=== PATIENT | female | born 1935 | race Caucasian/White ===

== ENCOUNTER 2018-04-28 09:30 | Inpatient (IN) | payer OTHER ==
[~2018-04-28] VITALS: Ht 160 cm; Wt 55.9 kg
[2018-04-28 09:30] VITALS: BP 181/74
[~2018-04-28 09:30] MED LIST: ACID CONTROL20 MG PO; ADULT LOW DOSE81 MG PO; AMITRIPTYLINE H50 M2 PO; AMOXIL 875 MG875 M1 PO; APAP500 PO; CARVEDILOL12.5 MG PO; CIPRO250 MG PO; CIPROFLOXACIN500 M1 PO; CLONIDINE HCL0.2 M2 PO; FAMOTIDINE20 MG PO; FUROSEMIDE 40 M40 M1 PO; LEVEMIR SQ; MACROBID 100 M100 M1 PO; NORCO 5-325 TA1 EACH PO; POTASSIUM20 OR; POTASSIUM20 PO; PRINIVIL20 MG PO; REMERON 30 MG T30 M1 PO; SLOW-MAG64 MG PO; ZOCOR 20 MG TAB20 M1 PO
[2018-04-28] MEDS ORDERED: AMLODIPINE BESY10 MG PO (09:38)
[2018-04-28] MEDS ORDERED: ASPIR 8181 MG PO (09:38)
[2018-04-28] MEDS ORDERED: COREG25 MG PO (09:38)
[2018-04-28] MEDS ORDERED: GLUCOTROL5 MG PO (09:39)
[2018-04-28] MEDS ORDERED: MULTIVITAMINS1 EAC7 PO (09:39)
[2018-04-28] MEDS ORDERED: SPIRONOLACTONE25 MG PO (09:40)
[2018-04-28] MEDS ORDERED: TYLENOL325 MG PO ×2 (09:40→09:41)
[2018-04-28] MEDS ORDERED: VITAMINC500 PO (09:41)
[2018-04-28 10:22] LABS: BASOPHILS 1.6 % (0.0-2.0); EOSINOPHILS 3.6 % (0.0-3.0); LYMPHOCYTES 22.5 % (24.0-44.0); MCH 29.2 pg (26.0-34.0); MCHC 34.1 g/dL (28.0-37.0); MCV 85.5 fL (80.0-100.0); MONOCYTES 4.4 % (1.0-8.0); PLATELET COUNT 193 thou/uL (150-400); POLYS 67.9 % (36.0-66.0); RDW 14.6 % (10.5-14.5); WBC 14.7 thou/uL (4.0-11.0)
[2018-04-28 10:24] LABS: ANION GAP 9 mmol/L (7-16); BUN 27 mg/dL (7-18); CALCIUM 9.3 mg/dL (8.5-10.1); CHLORIDE 105 mmol/L (98-107); CO2 27 mmol/L (21-32); CREATININE 1.3 mg/dL (0.6-1.0); GLUCOSE 132 mg/dL (74-106); POTASSIUM 4.4 mmol/L (3.5-5.1); SODIUM 141 mmol/L (136-145)
[2018-04-28 10:33] LABS: TROPONIN-I <0.06 ng/mL (<0.06)
[2018-04-28 10:40] LABS: URINE BILIRUBIN NEGATIVE (Negative); URINE BLOOD NEGATIVE (Negative); URINE CLARITY CLOUDY; URINE COLOR YELLOW; URINE GLUCOSE-RANDOM* NEGATIVE (Negative); URINE KETONES NEGATIVE (Negative); URINE LEUKOCYTES-REFLEX NEGATIVE (Negative); URINE NITRITE-REFLEX NEGATIVE (Negative); URINE PROTEIN (DIPSTICK) 2+ (Negative); URINE SPECIFIC GRAVITY 1.025 (1.005-1.035); URINE UROBILINOGEN 0.2 E.U./dl (0.2-1.0)
[2018-04-28 11:15] LABS: AMORPHOUS URATES Moderate /LPF (None Seen); BACTERIA-REFLEX 1-9 Few /HPF (None Seen); CASTS None Seen /LPF (None Seen); SQUAMOUS 0-3 Few /LPF (0-3); URINE RBC None Seen /HPF (0-2); URINE WBC-REFLEX None Seen /HPF (0-5)
[2018-04-28 15:13] VITALS: BP 163/60
[2018-04-28 16:06] LABS: ALBUMIN 3.4 g/dL (3.4-5.0); TOTAL PROTEIN 7.7 g/dL (6.4-8.2)
[2018-04-28 16:28] LABS: TSH 2.173 uIU/mL (0.358-3.740)
[2018-04-28 16:38] VITALS: BP 165/63; BP 167/59
[2018-04-28 19:40] VITALS: BP 156/53
[2018-04-29] VITALS (7 sets, daily range): BP systolic 92–170; BP diastolic 39–69
[2018-04-29 06:06] LABS: HEMATOCRIT 37.3 % (37.0-47.0); HEMOGLOBIN 12.7 gm/dL (12.0-15.0); MCH 29.3 pg (26.0-34.0); MCV 86.2 fL (80.0-100.0); RBC 4.32 mil/uL (4.20-5.00); RDW 14.6 % (10.5-14.5); WBC 12.7 thou/uL (4.0-11.0)
[2018-04-29 07:14] LABS: CALCIUM 8.7 mg/dL (8.5-10.1); CREATININE 1.1 mg/dL (0.6-1.0)
[2018-04-29 23:07] LABS: GLYCOHEMOGLOBIN (HGB A1C) 7.9 % (4.8-5.6)
[2018-04-30 03:38] VITALS: BP 150/60
[2018-04-30 06:34] LABS: HEMATOCRIT 36.1 % (37.0-47.0); HEMOGLOBIN 12.2 gm/dL (12.0-15.0); MCH 29.1 pg (26.0-34.0); MCHC 33.7 g/dL (28.0-37.0); MCV 86.3 fL (80.0-100.0); RBC 4.19 mil/uL (4.20-5.00); WBC 17.4 thou/uL (4.0-11.0)
[2018-04-30 06:52] LABS: MAGNESIUM 1.8 mg/dL (1.8-2.4); POTASSIUM 3.8 mmol/L (3.5-5.1)
[2018-04-30 07:26] VITALS: BP 189/69
[2018-04-30 14:53] VITALS: BP 136/58
[2018-04-30 15:07] VITALS: BP 142/66
[2018-04-30 19:23] VITALS: BP 151/61
[2018-05-01 03:55] VITALS: BP 137/59
[2018-05-01 05:50] LABS: HEMATOCRIT 37.5 % (37.0-47.0); HEMOGLOBIN 12.2 gm/dL (12.0-15.0); MCH 28.1 pg (26.0-34.0); MCHC 32.5 g/dL (28.0-37.0); MCV 86.6 fL (80.0-100.0); RBC 4.32 mil/uL (4.20-5.00); WBC 12.9 thou/uL (4.0-11.0)
[2018-05-01 06:01] LABS: CALCIUM 8.9 mg/dL (8.5-10.1); MAGNESIUM 1.7 mg/dL (1.8-2.4); POTASSIUM 4.1 mmol/L (3.5-5.1)
[2018-05-01 07:30] VITALS: BP 156/47
[2018-05-01 11:13] VITALS: BP 150/65
[2018-05-01 15:35] VITALS: BP 174/60
[2018-05-01 19:09] VITALS: BP 154/66
[2018-05-01] MEDS ORDERED: AMITRIPTYLINE H25 M2 PO (20:40)
[2018-05-02 03:19] VITALS: BP 165/76
[2018-05-02 04:09] LABS: HEMATOCRIT 35.9 % (37.0-47.0); MCH 28.8 pg (26.0-34.0); MCHC 33.5 g/dL (28.0-37.0); MCV 85.8 fL (80.0-100.0); RBC 4.19 mil/uL (4.20-5.00); RDW 14.4 % (10.5-14.5); WBC 12.9 thou/uL (4.0-11.0)
[2018-05-02 04:19] LABS: CALCIUM 8.9 mg/dL (8.5-10.1); MAGNESIUM 1.9 mg/dL (1.8-2.4); POTASSIUM 4.3 mmol/L (3.5-5.1)
[2018-05-02 07:28] VITALS: BP 169/58
[2018-05-02 15:31] VITALS: BP 145/64
[2018-05-02 19:13] VITALS: BP 169/67
[2018-05-03 03:50] VITALS: BP 115/52
[2018-05-03 07:34] VITALS: BP 145/63
[2018-05-03 15:17] VITALS: BP 125/55
[2018-05-03 19:42] VITALS: BP 151/64
[2018-05-04 04:36] VITALS: BP 148/60
[2018-05-04 07:52] VITALS: BP 142/54
[2018-05-04] MEDS ORDERED: CLONIDINE0.1 PO (14:17)
[2018-05-04] MEDS ORDERED: LISINOPRIL10 MG PO (14:17)
== END 2018-05-04 15:30 | DRG 683 ==
LOC: ER 09:30 → EROBS 13:17 → 3W 13:17
PROVIDERS: Emergency Medicine; Internal Medicine
DX: N17.9 Acute kidney failure, unspecified (principal); I42.9 Cardiomyopathy, unspecified; I69.351 Hemiplegia and hemiparesis following cerebral infarction affecting right dominant side; F32.9 Major depressive disorder, single episode, unspecified; R13.10 Dysphagia, unspecified; M62.84 Sarcopenia; H02.9 Unspecified disorder of eyelid; E11.22 Type 2 diabetes mellitus with diabetic chronic kidney disease; I12.9 Hypertensive chronic kidney disease with stage 1 through stage 4 chronic kidney disease, or unspecified chronic kidney disease; N18.9 Chronic kidney disease, unspecified; F03.90 Unspecified dementia, unspecified severity, without behavioral disturbance, psychotic disturbance, mood disturbance, and anxiety; E78.5 Hyperlipidemia, unspecified; D72.829 Elevated white blood cell count, unspecified; I25.2 Old myocardial infarction; Z90.49 Acquired absence of other specified parts of digestive tract; Z95.5 Presence of coronary angioplasty implant and graft; Z79.899 Other long term (current) drug therapy; Z79.82 Long term (current) use of aspirin; Z88.8 Allergy status to other drugs, medicaments and biological substances; Z88.6 Allergy status to analgesic agent; I69.991 Dysphagia following unspecified cerebrovascular disease
CPT/HCPCS: 10080

== ENCOUNTER 2019-08-02 14:52 | Inpatient (IN) | payer OTHER ==
[~2019-08-02] VITALS: Ht 162.6 cm; Wt 68.0 kg
--- NOTE | ~2019-08-02 | HC ---
[facility] [place] [address] [place] [address] CONSULTATION Name: JOLIE HANCOCK Room #: 450-P ADM IN M.R.#: [id number] Admission: 08/02/19 Attend Phys: Jacquelin Montague MD Discharge: Date of : 36 Report #: [id number] THIS REPORT FOR: //name// CC: Jacquelin Montague MD [facility] DATE OF SERVICE: 08/03/2019 PALLIATIVE CARE CONSULTATION REQUESTING PHYSICIAN: Dr. Montague. REASON FOR CONSULTATION: Possible aspiration event. HISTORY OF PRESENT ILLNESS: The patient is an 84-year-old female. She presented approximately 2 days prior with dyspnea, thought to be secondary to initially aspiration; however, subsequently thought to be secondary to anemia, probably acute blood loss. She has heme-positive stool, possible upper GI bleed. Gastroenterology has started her on IV proton pump inhibitor. However, we are trying to figure out if family would like to proceed with the scope as the patient has significant other comorbidities. She has a history of CVA, dysphagia, PEG tube and she additionally has hemiparesis. The patient has aphasia as well. It is difficult to obtain information from the patient at this current time. She is able to respond in head nods and can appropriately say that she is not in pain and not having nausea; however, I am unable to obtain other information from her at this time. It is difficult again to obtain any other information with regard to her past advance directives. She does have a next of kin listed as Juanpablo Hancock and I have attempted today to contact him by two numbers. PAST MEDICAL HISTORY: This is again significant for cerebrovascular disease with hemiparesis, aphasia, dysphagia requiring a PEG tube placement. Additionally, she has anemia, diastolic heart failure, type 2 diabetes. MEDICATIONS: These were reviewed. Inpatient medications included normal saline, Protonix, Zosyn, albuterol, nitroglycerin. ALLERGIES: BENZOS, MORPHINE, DEPAKOTE, FENTANYL. CODE STATUS: Currently listed as full code. SOCIAL HISTORY: Again, unable to obtain majority. Son is listed as durable power of attorney recruiter. I have attempted to contact today. PAST SURGICAL HISTORY: Known to have PEG tube; otherwise, unable to obtain. [facility] [address] [place] [address] CONSULTATION Name: JOLIE HANCOCK Room #: 450-[facility] IN .R.#: [id number] Admission: 08/02/19 Attend Phys: Jacquelin Montague MD Discharge: Date of : 36 Report #: [id number] FAMILY HISTORY: Noncontributory to current diagnoses. REVIEW OF SYSTEMS: Again, only I am able to obtain that the patient is not in pain and does not have nausea. PHYSICAL EXAMINATION: VITAL SIGNS: Include a temperature of 36.5, pulse 68, respirations 16, blood pressure 195/57 at the time of my visit, 100% on nasal cannula. GENERAL: The patient appeared to be alert to verbal stimuli, but unable to assess significantly for attention level. CARDIOVASCULAR: Regular rate and rhythm currently, slightly tachycardic at times. Actually, she is without tachycardia currently. RESPIRATORY: No tachypnea. She has mild adventitial sounds in the lower lobes bilaterally. ABDOMEN: Soft, nondistended. Diminished bowel sounds. LABORATORY DATA: These included hemoglobin 10.2; additionally, creatinine 1.5. ASSESSMENT AND PLAN: 1. Possible gastrointestinal bleed. At this point in time, wishing to assess whether the patient would be a good candidate and/or if the family would desire patient to have upper GI and colonoscopy. Appreciate proton pump inhibitor, advice from primary team and GI. Again, it appears trending of hemoglobin needs to be performed. I would also like to discuss with family with regard to code status and advance directive overall. 2. Cerebrovascular disease with aphasia. Again, this makes it difficult to obtain patient's information with regard to directions. It appears the patient in history has been listed to have dementia and this may be an overlying factor as well. 3. Dementia, again overlying the influence our overall decision making. Has DPOA, I attempted to contact DPOA by 2 different numbers, left messages with my contact information, but have not received additional contact information since. I will continue to follow up with DPOA if possible to try to obtain more information. Thank you very much for this consultation. By: 1200 [id number] Mehul Davis, /nt
[2019-08-02 14:52] VITALS: BP 140/58
[~2019-08-02 14:52] MED LIST changes: +AMITRIPTYLINE H25 M2 PO; +AMLODIPINE BESY10 MG PER TUBE; +ASPIR 8181 MG PER TUBE; +CLONIDINE0.1 PO; +COREG25 MG PER TUBE; +GLUCOTROL5 MG PO; +LISINOPRIL10 MG PO; +MULTIVITAMINS1 EAC7 PER TUBE; +SPIRONOLACTONE25 MG PO; +TYLENOL325 MG PER TUBE; +TYLENOL325 MG PO; +VITAMINC500 PER TUBE
--- NOTE | 2019-08-02 15:09 | NUR ---
CALLED [facility] TO OBTAIN A BASELINE FOR THE PT AND CLARIFICATION ON IF SHE IS ON CONTINUOUS O2: TALKED ARIK-SARA WHO SAID SHE RESONDS TO QUESTIONS WITH ONE WORD ANSWERS. PER ARIK THE PT WAS FOUND WITH AN O2 SAT OF 88% AND HAD CRACKLES SOUNDS IN THE LUNGS.
[2019-08-02 15:22] LABS: ABSOLUTE NEUTROPHILS 10.7 thou/uL (1.4-8.2); BASOPHILS 1.3 % (0.0-2.0); EOSINOPHILS 1.9 % (0.0-3.0); HEMATOCRIT 29.9 % (37.0-47.0); HEMOGLOBIN 9.4 gm/dL (12.0-15.0); LYMPHOCYTES 14.9 % (24.0-44.0); MCH 30.6 pg (26.0-34.0); MCHC 31.3 g/dL (28.0-37.0); MCV 97.5 fL (80.0-100.0); MONOCYTES 4.4 % (1.0-8.0); PLATELET COUNT 159 thou/uL (150-400); POLYS 77.5 % (36.0-66.0); RBC 3.07 mil/uL (4.20-5.00); RDW 14.9 % (10.5-14.5); WBC 13.8 thou/uL (4.0-11.0)
[2019-08-02 15:29] LABS: CALCIUM 8.2 mg/dL (8.5-10.1); CREATININE 1.5 mg/dL (0.6-1.0); POTASSIUM 4.4 mmol/L (3.5-5.1)
[2019-08-02 15:39] LABS: ALBUMIN 2.1 g/dL (3.4-5.0); TOTAL BILIRUBIN 0.4 mg/dL (<0.1-1.0); TOTAL PROTEIN 6.5 g/dL (6.4-8.2); TROPONIN-I 0.09 ng/mL (<0.06)
[2019-08-02 17:32] VITALS: BP 140/58
[2019-08-02 18:42] VITALS: BP 146/58
[2019-08-02 18:52] VITALS: BP 175/91
[2019-08-02] MEDS ORDERED: PACERONE200 MG PER TUBE (21:44)
[2019-08-02] MEDS ORDERED: LIPITOR40 MG PER TUBE (21:45)
[2019-08-02] MEDS ORDERED: KIDS VITAMIN400 UNIT PER TUBE (21:46)
[2019-08-02] MEDS ORDERED: CLONIDINE HCL0.2 M2 PER TUBE (21:47)
[2019-08-02] MEDS ORDERED: GLUCAGON EMERGEN1 MG SUBQ (21:48)
[2019-08-02] MEDS ORDERED: IPRAT-ALBUT 0.5-3 ML INH (21:49)
[2019-08-02] MEDS ORDERED: ANTI-DIARRHEAL2 M1 PO (21:50)
[2019-08-02] MEDS ORDERED: NOVOLIN N100 UNIT/1 SUBQ (21:51)
[2019-08-02] MEDS ORDERED: NYSTATIN15 G3 TOP (21:52)
[2019-08-02] MEDS ORDERED: ONDANSETRON HCL4 M2 PER TUBE (21:53)
[2019-08-02 23:47] LABS: HEMATOCRIT 30.6 % (37.0-47.0); HEMOGLOBIN 9.6 gm/dL (12.0-15.0)
[2019-08-03] VITALS: BP 153/67
[2019-08-03 01:55] LABS: HEMATOCRIT 29.2 % (37.0-47.0); HEMOGLOBIN 9.1 gm/dL (12.0-15.0); MCH 30.5 pg (26.0-34.0); MCHC 31.2 g/dL (28.0-37.0); MCV 97.7 fL (80.0-100.0); RBC 2.99 mil/uL (4.20-5.00); RDW 14.5 % (10.5-14.5); WBC 18.1 thou/uL (4.0-11.0)
[2019-08-03 02:18] LABS: ALBUMIN 2.1 g/dL (3.4-5.0); CALCIUM 7.2 mg/dL (8.5-10.1); CREATININE 1.2 mg/dL (0.6-1.0); TOTAL BILIRUBIN 0.4 mg/dL (<0.1-1.0); TOTAL PROTEIN 5.8 g/dL (6.4-8.2); TROPONIN-I 0.06 ng/mL (<0.06)
[2019-08-03 04:35] VITALS: BP 147/69
--- NOTE | 2019-08-03 06:41 | NUR ---
PT ARRIVED TO UNIT JUST PRIOR TO SHIFT CHANGE; ADMISSION AND ASSESSMENT COMPLETED, CONSENTS SIGNED BY ERIC. PT FROM [facility]; HISTORY OF STROKE WITH LEFT-SIDE DEFICIT AND DYSPHASIA. WOUND PHOTOS TAKEN OF RIGHT HEEL AND SACRUM. HAS G-TUBE AND RECEIVES CONTIN. TUBE FEED, BUT ALSO GETS HONEY LIQUIDS. CURRENTLY NPO PENDING GI CONSULT TODAY. ACHS ACCUCHECKS. IV PROTONIX, ONE BAG 1/2NS, AND ZOSYN INFUSING OVERNIGHT. Q2 TURNS. NO OTHER CONCERNS, WILL CONTINUE TO MONITOR.
[2019-08-03 06:58] LABS: URINE BILIRUBIN NEGATIVE (Negative); URINE BLOOD 1+ (Negative); URINE CLARITY CLEAR; URINE COLOR YELLOW; URINE GLUCOSE-RANDOM* NEGATIVE (Negative); URINE KETONES NEGATIVE (Negative); URINE NITRITE-REFLEX NEGATIVE (Negative); URINE PROTEIN (DIPSTICK) 3+ (Negative); URINE SPECIFIC GRAVITY 1.025 (1.005-1.035)
[2019-08-03 07:00] LABS: URINE LEUKOCYTES-REFLEX 3+ (Negative)
[2019-08-03 07:44] VITALS: BP 170/65
[2019-08-03 08:20] LABS: BACTERIA-REFLEX >30 Many /HPF (None Seen); CASTS None Seen /LPF (None Seen); CRYSTALS None Seen /LPF (None Seen)
[2019-08-03 08:21] LABS: SQUAMOUS >10 Many /LPF (0-3)
[2019-08-03 08:23] LABS: URINE RBC 0-2 Rare /HPF (0-2); URINE WBC-REFLEX >25 Many /HPF (0-5)
--- NOTE | 2019-08-03 08:34 | EKG ---
[place] [address] [facility] [place] [address] ELECTROCARDIOGRAM REPORT Name: JOLIE WOLF Room #: 354-P ADM IN M.R.#: [id number] Admission: 08/02/19 Attend Phys: Jacquelin Montague MD Discharge: Date of : 36 Report #: [id number] THIS REPORT FOR: //name// [facility] ED Test Date: 2019-08-02 Test Time: 14:55:57 Pat Name: JOLIE WOLF Department: Room: 354 Gender: F Personal Trainer: KAIT : 1935 Requested By: Jt Fox Order Number: [id number] MD: Karlos Junior Measurements Intervals [place] Rate: 61 P: 49 SC: 165 QRS: -65 QRSD: 141 T: 128 QT: 515 QTc: 519 Interpretive Statements Sinus arrhythmia Right bundle branch block Left anterior hemiblock Inferior infarct, age indeterminate Compared to ECG 07/25/2013 19:03:40 premature ventricular complexes are no longer present Electronically Signed On 08-03-2019 8:33:26 [employer] by Karlos Junior [email or web address] <ELECTRONICALLY SIGNED> By: Karlos Junior MD, [facility] 08/03/19 0833 1455 1455 Karlos Junior MD, [facility] /EPI
[2019-08-03 10:04] LABS: HEMATOCRIT 33.5 % (37.0-47.0); HEMOGLOBIN 10.4 gm/dL (12.0-15.0)
--- NOTE | 2019-08-03 11:46 | NUR ---
Nutrition: When able to resume tube feeds rec Glucerna 1.2 goal rate 55 mL/hr.
[2019-08-03 11:51] VITALS: BP 174/54
--- NOTE | 2019-08-03 12:38 | NUR ---
WOUND CONSULT; THERE IS NOW WOUND TO THE RIGHT HEEL. THE SACRUM HAS TWO WOUNDS TO LATERALLY. HEALTH RED TISSUE, NO S/S OF INFECTION. RECOMMENMEDATTIONS; 1-APPLY ZGUARD DAILY/PRN 2-APPLY PUREWICK RE;INCONTINENCE 3-LOW AIRLOSS PUMP
--- NOTE | 2019-08-03 15:37 | 2DMMODE ---
[facility] [address] [place] [address] 2 D/M-MODE ECHOCARDIOGRAM Name: LUCIANOJOLIE Room #: 354-P ADM IN M.R.#: [id number] Admission: 08/02/19 Attend Phys: Mary Connolly Discharge: Date of : 36 Report #: [id number] THIS REPORT FOR: //name// APPROVED REPORT Study performed: 08/03/2019 14:49:51 EXAM: Comprehensive 2D, Doppler, and color-flow Echocardiogram Patient Location: Bedside Room #: 354 Status: routine BSA: 1.73 HR: 68 bpm BP: 174/54 mmHg Rhythm: Sinus arrhythmia Other Information Study Quality: Good/no patient participation. Indications Short of breath, evaluate for CHF. Hx: FL, stents, CABG, CVA, DM, HTN. 2D Dimensions RVDd: 33.22 mm IVSd: 17.13 (7-11mm) LVOT Diam: 19.07 (18-24mm) LVDd: 41.11 mm PWd: 17.00 (7-11mm) Ascending Ao: 30.06 (22-36mm) LVDs: 32.56 (25-40mm) Aortic Root: 30.23 mm Volumes Left Atrial Volume (Systole) Single Plane 4CH: 52.21 mL Single Plane 2CH: 63.68 mL LA ESV Index: 36.00 mL/m2 Aortic Valve AoV Peak Donavan.: 1.57 m/s AO Peak Gr.: 9.87 mmHg LVOT Max P.90 mmHg LVOT Max V: 0.85 m/s HERBERTH Vmax: 1.55 cm2 Mitral Valve E/A Ratio: 0.7 MV Decel. Time: 123.66 ms [facility] [address] [place] [address] 2 D/M-MODE ECHOCARDIOGRAM Name: JOLIE WOLF Room #: 354-P [facility] IN [facility].#: [id number] Admission: 08/02/19 Attend Phys: Mary Connolly Discharge: Date of : 36 Report #: [id number] MV E Max Donavan.: 0.93 m/s MV A Donavan.: 1.27 m/s MV PHT: 35.86 ms IVRT: 89.97 ms Pulmonary Valve PV Peak Donavan.: 1.12 m/s PV Peak Gr.: 5.03 mmHg Pulmonary Vein P Vein S: 1.09 m/s P Vein D: 0.44 m/s P Vein S/D Ratio: 2.48 Tricuspid Valve TR Peak Donavan.: 2.04 m/s RAP Estimate: 5.00 mmHg TR Peak Gr.: 17.00 mmHg PA Pressure: 22.00 mmHg Left Ventricle The left ventricle is normal size. There is normal LV segmental wall motion. Moderate concentric left ventricular hypertrophy. Left ventricular systolic function is normal. LVEF is 55-60%. Mild diastolic dysfunction is present (impaired relaxation pattern). Right Ventricle The right ventricle is normal size. The right ventricular systolic function is normal. Atria Left atrium is mildly dilated. The right atrium size is normal. Aortic Valve The aortic valve leaflets are calcified. No aortic regurgitation is present. There is no aortic valvular stenosis. Mitral Valve Mild mitral annular calcification. Mild mitral regurgitation. Tricuspid Valve The tricuspid valve is normal in structure. Trace to mild tricuspid regurgitation. Estimated PAP is 20-25mmHg. Pulmonic Valve [facility] [place] [address] 2 D/M-MODE ECHOCARDIOGRAM Name: JOLIE WOLF Room #: 354-P ADM IN M.R.#: [id number] Admission: 08/02/19 Attend Phys: Mary Connolly Discharge: Date of : 36 Report #: [id number] The pulmonary valve is normal in structure. Trace pulmonic regurgitation. Great Vessels The aortic root is normal in size. The ascending aorta is normal in size. IVC is normal in size and collapses >50% with inspiration. Pericardium There is no pericardial effusion. <Conclusion> Left ventricular systolic function is normal. There is normal LV segmental wall motion. Moderate concentric left ventricular hypertrophy. LVEF is 55-60%. Mild diastolic dysfunction The aortic valve leaflets are calcified. No aortic regurgitation or stenosis. Mild mitral annular calcification. Mild mitral regurgitation. Trace to mild tricuspid regurgitation. Estimated pulmonary artery pressure of 20-25mmHg. There is no pericardial effusion. <ELECTRONICALLY SIGNED> By: Karlos Junior MD, [facility] 08/03/19 [phone] Karlos Junior MD, FACC /INF
[2019-08-03 16:03] VITALS: BP 195/57
--- NOTE | 2019-08-03 16:10 | NUR ---
INITIAL ASSESSMENT: Received consult. ROGELIO reviewed chart and spoke with nursing and attending physician. Pt was admitted from [facility] due to GI bleed/anemia. Pt with hx of dementia. Peg tube in place. PT/OT ordered to work with pt. ROGELIO spoke with Karla in admissions at [facility] who states that pt is in jail care. ROGELIO spoke with pt's son/DPOA, Juanpablo, and dtr-in-law, Brenda, via phone. Introduced role of ROGELIO. Pt has been at [facility] since December of 2018. Pt was using her skilled benefit, and then transitioned to LTC. Pt's family is interested in moving pt to [place] side, to be closer to family. Family has contacted [facility], [facility] and [facility]. [facility] does not have any beds available. Pt's family requests referrals to [facility] and [facility]. SW discussed additional options in [place]. Family requests referral to [facility]. Pt did have [place] Medicaid, but per family, the facility let it lapse. ROGELIO explained that if a new facility has not accepted the pt at time of discharge, pt would need to return to [facility]. Pt would be [place] Medicaid pending. Pt's family is agreeable. ROGELIO faxed referrals to SNFs. Awaiting input from facilities. ROGELIO is following to assist as needed with discharge planning.
[2019-08-03 16:41] LABS: HEMATOCRIT 32.4 % (37.0-47.0); HEMOGLOBIN 10.2 gm/dL (12.0-15.0)
[2019-08-03 19:40] VITALS: BP 158/73
[2019-08-04 01:49] LABS: ABSOLUTE NEUTROPHILS 12.9 thou/uL (1.4-8.2); BASOPHILS 0.5 % (0.0-2.0); EOSINOPHILS 1.6 % (0.0-3.0); HEMATOCRIT 31.9 % (37.0-47.0); HEMOGLOBIN 9.9 gm/dL (12.0-15.0); LYMPHOCYTES 13.5 % (24.0-44.0); MCH 30.3 pg (26.0-34.0); MCHC 31.1 g/dL (28.0-37.0); MCV 97.6 fL (80.0-100.0); MONOCYTES 4.1 % (1.0-8.0); PLATELET COUNT 173 thou/uL (150-400); POLYS 80.3 % (36.0-66.0); RBC 3.27 mil/uL (4.20-5.00); RDW 14.8 % (10.5-14.5)
[2019-08-04 02:10] LABS: CALCIUM 7.8 mg/dL (8.5-10.1); CREATININE 1.1 mg/dL (0.6-1.0); POTASSIUM 3.6 mmol/L (3.5-5.1); TROPONIN-I 0.07 ng/mL (<0.06)
[2019-08-04 03:30] VITALS: BP 163/77
--- NOTE | 2019-08-04 07:52 | NUR ---
ASSUMED CARE AT 1900, ASSESSMENT COMPLETED. OBTAINED CONSENT FROM [facility] FOR EGD PLANNED FOR TODAY. OBTAINED ORDER FOR DIEGO D/T POOR CONDITION OF SACRAL SKIN. SA TO SR ON TELE, HR IN 60-70'S OVERNIGHT. Q2 TURNS. MULTIPLE SOFT, STOOLS OVERNIGHT. NEW IV STARTED IN LEFT AC, D5 AND ZOSYN INFUSING; PROTONIX INFUSING TO RIGHT FA. NO OTHER CONCERNS, SHIFT REPORT GIVEN AT 0700.
[2019-08-04 07:56] VITALS: BP 165/58
[2019-08-04 09:47] LABS: HEMATOCRIT 31.4 % (37.0-47.0); HEMOGLOBIN 9.9 gm/dL (12.0-15.0)
--- NOTE | 2019-08-04 10:45 | NUR ---
ROGELIO reviewed chart and spoke with nursing and attending physician. Pt to have EGD today. [facility] to do onsite evaluation today. ROGELIO spoke with pt's dtr-in-law, Brenda, via phone to provide update. Brenda requests that pt's dtr, Maureen, be taken off the contact list. Maureen's info currently on face sheet. Pt's son, Britton and dtr-in-law are DPOAs for pt. ROGELIO faxed updated face sheet to registration and spoke with Myra to have info updated. Brenda is agreeable with [facility] eval and would like pt to be discharged there if accepted. [facility] is unable to accept pt. Awaiting input from [facility]. ROGELIO spoke with Peggy in admissions at [facility], who will do onsite eval around 1230. ROGELIO is following to assist as needed with discharge planning.
[2019-08-04 13:34] VITALS: BP 204/80
[2019-08-04 15:55] VITALS: BP 187/63
--- NOTE | 2019-08-04 17:40 | P ---
[facility] [place] [address] PROCEDURE REPORT Name: JOLIE WOLF Room #: 354-P [facility] IN .R.#: [id number] Admission: 08/02/19 Attend Phys: Jacquelin Montague MD Discharge: Date of : 36 Report #: [id number] THIS REPORT FOR: //name// CC: Jacquelin Fernandez DO Mame Fernandez INPATIENT ENDOSCOPY REPORT BRIEF HISTORY: The patient is an 84-year-old woman who presented with a history of black stools. She also has significant anemia and stools are Hemoccult positive. 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 She has an indwelling PEG tube for nutritional support. PREOPERATIVE DIAGNOSES: Anemia and melena. POSTOPERATIVE DIAGNOSES: 1. Polypoid lesion, second portion of duodenum, uncertain significance. 2. Prominent duodenal papilla. 3. Mild erythematous gastritis. MEDICATIONS: Deep sedation with propofol per anesthesia. SPECIMENS: 1. Biopsies of a large duodenal papilla. 2. Biopsies of polypoid lesion, second portion of duodenum. ESTIMATED BLOOD LOSS: 3 mL. PROCEDURES: EGD with biopsy. FINDINGS: Prior to propofol sedation, the procedure of upper endoscopy was discussed with the patient's daughter as well as potential risks and its complications. She indicates she understands and desires to proceed. DESCRIPTION OF PROCEDURE: With the patient in left lateral decubitus position, the Olympus video endoscope was inserted in the cervical esophagus under direct vision without difficulty. Examination of this organ through its entire length revealed normal esophageal mucosa down the squamocolumnar junction. The squamocolumnar junction was inspected and noted to be unremarkable. No ulcers, erosions or bleeding lesions were seen. A hiatus hernia was not seen. There was no evidence of Savage's mucosa. The scope was advanced into the stomach, which was examined on end view as well as retroflexed views. There was no blood in the stomach. There were no signs of bleeding in the stomach. No ulcers, erosions or mucosal lesions were seen. The PEG bolster was seen coming into the body of the stomach. We were able to see under the bolster and there was no evidence of ulceration. Upon retroflexion, no mass lesions were seen in the [facility] [address] [place] [address] PROCEDURE REPORT Name: JOLIE WOLF Room #: 354-P ADM IN .R.#: [id number] Admission: 08/02/19 Attend Phys: Jacquelin Montague MD Discharge: Date of : 36 Report #: [id number] cardia. Examination of the antrum revealed patchy erythema. No ulcers or erosions were seen. Biopsies obtained for H. pylori. The pylorus, duodenal bulb and postbulbar areas sweep were inspected. The duodenal bulb was unremarkable. There was no evidence of ulcer or bleeding lesions. Vascular ectasias were not seen. In the second portion of duodenum just distal, duodenal bulb, there was a fullness and a polypoid lesion, which was about 1.5 to 2.0 cm. It had a smooth and benign appearance. It is not clear whether this was a neoplastic process or thickened fold and biopsies were obtained. Just distal to this area, the duodenal papilla was identified. The overlying mucosa appeared normal. The orifice was normal. Yellow bile was seen coming from it, but it appeared larger than expected and biopsies were obtained. It had a benign appearance. Distal to this area the mucosa was normal. No evidence of bleeding ulcers or vascular ectasias. At that point, the scope was slowly withdrawn and careful circumferential views confirmed the above findings. The patient tolerated the procedure well. DISPOSITION: The patient with melanotic stools and Hemoccult-positive stools. A definite bleeding site was not identified. We will follow up on biopsies from above. We will discuss with family the role of further investigation such as colonoscopy or potentially even a small capsule endoscopy; however, given her considerable disability, these procedures may be very difficult. <ELECTRONICALLY SIGNED> By: Jos Gastelum MD 08/04/19 1740 1235 1705 Jos Gastelum MD /nt
[2019-08-04 19:33] VITALS: BP 186/63
--- NOTE | 2019-08-04 21:34 | NUR ---
CALLED REPORT TO WILLIAM ON AT 2020. SALINE LOCKED PT AND STOPPED TUBE FEEDING. TRANSPORTED BY BED TO 450, PT IN STABLE CONDITION. ALL BELONGINGS, CHART, MEDS, AND TUBE FEEDING TRANSPORTED TO NEW ROOM.
--- NOTE | 2019-08-05 06:00 | NUR ---
Transfer pt from [facility] in stable condition. pt unable to communicate needs. staff anticipates needs. pt incont of loose brown stool. blanca cath in place and patent. Feeding tube running at 40ml/hr and pt tolerating it well. no s/s of distress. following poc and continous monitoring
[2019-08-05 06:20] LABS: ALBUMIN 1.8 g/dL (3.4-5.0); CREATININE 1.1 mg/dL (0.6-1.0); POTASSIUM 3.1 mmol/L (3.5-5.1)
[2019-08-05 07:45] VITALS: BP 114/49
[2019-08-05 14:40] VITALS: BP 116/48
--- NOTE | 2019-08-05 15:49 | NUR ---
PT AWAKE, BUT NON VERBAL. VSS, IVF INFUSING PER ORDER. TUBE FEEDING PER PEG NO ISSUES. DIEGO TO DD. SACRAL WOUND DRESSING CHANGED. PT TURNED FREQUENTLY THIS SHIFT. PT DOES NOT APPEAR TO BE IN ANY PAIN. WILL CONTINUE TO MONITOR.
[2019-08-05 19:09] VITALS: BP 127/39
--- NOTE | 2019-08-06 02:13 | NUR ---
PT CARE ASSUMED WITH PATIENT IN BED WATCHING TV.PT IS MAX ASSIST X2.PT IS ALERT.PT NON VERBAL.PT HAS PEG TUBE AND ON FEEDING.PT IS ACCUCHECK ACHS.PT IS ON DAILY WOUNND DRESSING.PT IS NPO.PT HAD LOSS 4 STOOLS DURING SHIFT.SACRAL WOUND DRESSING CHANGED.WILL CONTINUE TO MONITOR PER POC
[2019-08-06 05:15] VITALS: BP 135/54
[2019-08-06 08:00] VITALS: BP 131/34
[2019-08-06 09:23] LABS: CALCIUM 7.5 mg/dL (8.5-10.1); CREATININE 1.3 mg/dL (0.6-1.0); POTASSIUM 4.6 mmol/L (3.5-5.1)
--- NOTE | 2019-08-06 13:46 | NUR ---
HAS BEEN REPOSITIONED 2 HRS PER POC-DIEGO CATH PATENT AND DRAINING CLEAR YELLOW URINE-WILL RESPOND TO QUESTIONS ASKED BY STAFF AND WAS ABLE TO VERBALIZE DAUGHTERS NAME OTHERWISE IS MARCELLE NON-VERBAL. RESTING INTERMITENTLY THROUGHOUT SHIFT SO FAR. NPO AND GLUCERNA INFUSING VIA PEG TUBE AT 75 CC PER HR-INCONTINENT OF SMALL SOFT BM-DRESSING TO SACRAL AREA REMAINS CLEAN AND DRY NO DRAINAGE OBSERVED SO REMAINS INTACT- IV FLUIDS DC'D PER MD ORDER-SALINE LOCK TO LEFT FOREARM REWRAPPED AND FLUSHED PER PROTOCOL. IS NOTED TO HAVE 2 PLUSE EDEMA TO LEFT HAND AND FINGERS-MD AT BEDSIDE AND ASSESSED AT APPROX. 1100- NO NEW ORDERS RECEIVED. 300 CC H20 GIVEN VIA TUBE Q 4 HRS ORDERED BY
[2019-08-06 15:00] VITALS: BP 136/40
[2019-08-06 21:20] VITALS: BP 147/31
[2019-08-06 23:49] VITALS: BP 135/43
--- NOTE | 2019-08-07 03:01 | NUR ---
ASSUMED CARE AROUND 191. AWAKE AND DROWSY. VSS. NO S/S ACUTE DISTRESS NOTED OR REPORTED AT THIS TIME. WILL CONT TO MONITIOR FOR ANY CHANGES IN CONDITION.
[2019-08-07 04:42] VITALS: BP 148/56
[2019-08-07 06:47] VITALS: BP 129/46
--- NOTE | 2019-08-07 10:06 | NUR ---
Nutrition: Fluid provisions with Tube feeds and flushes are meeting 182% of needs. REC consider decrease water flushes to 100 mL q 4 hrs. Also may consider re check phos. Phos 2.0 on 08/05.
--- NOTE | 2019-08-07 10:19 | NUR ---
WOUND CARE FOLLOW UP; THE BILATERAL SACRAL WOUNDS ARE DRAMATICALLY IMPROVED TODAY. APPROX 50% EPITHELIALIZED. NO S/S OF INFECTION. TODAY THIS PATIENT HAS A DIEGO AND THEREFORE THE WOUNDS ARE RESOLVING RAPIDLY WITH WOUND CARE AND OFFLOADING INTERVENTIONS. CONTINUE CURRENT TREATMENT DISCUSSED WITH SARA
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
[2019-08-07 14:44] VITALS: BP 115/66
[2019-08-07] MEDS ORDERED: AUGMENTIN 500-1 EACH PER TUBE ×2 (14:51→16:21)
[2019-08-07] MEDS ORDERED: PEPCID20 MG PER TUBE ×2 (14:51→16:21)
--- NOTE | 2019-08-07 15:48 | NUR ---
CARE TEAM INDICATED THAT PT IS MEDICALLY STABLE TO DC TO FACILITY THIS DAY. CM CALLED AND SPOKE WITH PT'S DPOA DTR IN LAW. SHE EXPRESSED SOME CARE CONCERNS CM CALLED AND NOTIFIED ZAKI FOR FOLLOW UP. PT IS TO DISCHARGE TO LTC AT [facility] THIS DAY. PT, DTR IN LAW, AND SON ARE AWARE AND AGREEABLE. CHART COPY ORDERED. ORDERS FAXED. [facility] WAS ARRANGED FOR 1700. REPORT TO BE CALLED TO . NO OTHER CM INTERVENTION INDICATED. CASE CLOSED.
--- NOTE | 2019-08-08 08:19 | HC ---
[facility] [place] [address] [place] [address] CONSULTATION Name: JOLIE WOLF Room #: 450-P [facility] M.R.#: [id number] Admission: 08/02/19 Attend Phys: Jacquelin Montague MD Discharge: 08/07/19 Date of : 37 Report #: [id number] THIS REPORT FOR: //name// CC: Jacquelin Montague Mame Fernandez DATE OF SERVICE: 08/04/2019 REASON FOR CONSULTATION: Elevated sodium. REASON FOR PRESENTATION: Shortness of breath; however, I am not able to verify that. HISTORY OF PRESENT ILLNESS: This is obtained from the medical chart. Unfortunately, I am not able to verify any information or to obtain any information from the patient. She was brought from her nursing facility with shortness of breath as per the medical records. She was found to have ____. The patient is known to have advanced vascular dementia, diabetes mellitus and hypertension. She has a PEG tube. She also has history of decubitus ulcers. She has no issues with her renal function, in fact, her creatinine on presentation 1.1. It does look like from the nursing facility, laboratory values and history that the patient has very poor oral intake of fluid. She has history of dysphagia related to her dementia. The patient was initiated on low rate D5W with no improvement on her sodium mandating a Nephrology consultation. PAST MEDICAL HISTORY: This is obtained from the medical charts. 1. Oropharyngeal dysphagia. 2. Diabetes mellitus. 3. Hypertension. 4. PEG tube. 5. Decubitus ulcers. 6. History of anemia. 7. Vascular dementia. 8. Debility. SOCIAL HISTORY: She is a care home facility resident. No reported drug or alcohol abuse. REVIEW OF SYSTEMS: Unobtainable given the patient's current mental status. FAMILY HISTORY: Unobtainable given the patient's current mental status. MEDICATIONS: 1. Amiodarone. 2. Atorvastatin. 3. Carvedilol. [facility] [address] [place] [address] CONSULTATION Name: JOLIE WOLF Room #: 450-[facility].#: [id number] Admission: 08/02/19 Attend Phys: Jacquelin Montague MD Discharge: 08/07/19 Date of : 37 Report #: [id number] 4. Amlodipine. 5. Ascorbic acid. ALLERGIES: BENZODIAZEPINE AND MORPHINE. PHYSICAL EXAMINATION: GENERAL: The patient is noncommunicative. VITAL SIGNS: Blood pressure is 165/58, temperature is 36.9. HEAD AND NECK: No jugular venous distention. CHEST: Clear to air bilaterally. CARDIOVASCULAR: Regular with no rub detected. ABDOMEN: Soft. EXTREMITIES: Lower extremities, no edema. LABORATORY VALUES: Reviewed. White blood cell count 16,000. Sodium 157, BUN is 44, creatinine is 1.1 from 1.5. Urine; +3 protein with white blood cells and red blood cells. Urine culture is pending. IMPRESSION AND PLAN: 1. Hypernatremia due to free water deficit due to lack of free water or lack of access to free water. 2. Leukocytosis. 3. Repeated urinary tract infection. 4. Oropharyngeal dysphagia. 5. Vascular dementia. 6. Increase the rate of her D5W. This should rectify with free water supplementation. As long as this patient has oropharyngeal dysphagia with no access to free water, she will continue to run into major issues with her sodium. 7. Other medical care aspects are being addressed by the primary team. <ELECTRONICALLY SIGNED> By: Jaime Ordoñez MD 08/08/19 0819 [id number] Jaime Ordoñez MD /nt
--- NOTE | 2019-08-08 12:07 | PATH ---
[facility] [place] [address] [place] [address] PATHOLOGY RPT PROCEDURE Name: JOLIE WOLF Room #: 450-P [facility] IN M.R.#: [id number] Admission: 08/02/19 Date of : 37 Discharge: 08/07/19 Report #: [id number] Path Case #: [id number] [facility] Accession Number: [id number] . 01 Material submitted: . PART A: duodenum - BX OF ENLARGED DUODENAL PAPILLA PART B: duodenum - BX OF POLYPOID LESION SECOND SEGMENT OF DUODENUM. Modifiers: second PART C: stomach - GASTRIC BIOPSY . 01 Clinical history: . None provided. . 02 Diagnosis: A. Small bowel mucosa, enlarged duodenal papilla, endoscopic biopsy: - Minute tubular adenoma. - Mild nonspecific acute and chronic duodenitis associated with reactive mucosal changes. - Negative for high grade dysplasia. - Negative for villous blunting or increase in intraepithelial lymphocytes. . B. Polypoid lesion second segment of duodenum, endoscopic biopsy: - Tubular adenoma. - Negative for high grade dysplasia. . C. Gastric mucosa, rule out H. pylori, endoscopic biopsy: - Mild reactive gastropathy. - Negative for intestinal metaplasia or atrophy. - Negative for Helicobacter pylori (properly-controlled immunohistochemical stain performed). . (IUV:mml; 08/07/2019) [facility] 08/08/2019 1123 Local . 02 Electronically signed: . Liza Santamaria MD, Pathologist NPI- [id number] . 01 Gross description: . A. Received in formalin labeled "Jolie Wolf, BX of enlarged duodenal papilla" is a 0.8 x 0.5 x 0.1 cm aggregate of alfonso-brown mucosa fragments. The specimen is submitted in A1. . B. Received in formalin labeled "Jolie Wolf, BX of polypoid lesion second segment of duodenum" is a 1.4 x 0.4 x 0.1 cm aggregate of alfonso-brown mucosa fragments. The specimen is submitted in B1. [address] [address] PATHOLOGY RPT PROCEDURE Name: JOLIE WOLF Room #: 450-P [facility] ..#: [id number] Admission: 08/02/19 Date of : 37 Discharge: 08/07/19 Report #: [id number] Path Case #: [id number] . C. Received in formalin labeled "Jolie Wolf, gastric BX rule out H. pylori" is a 0.7 x 0.5 x 0.1 cm aggregate of alfonso-brown mucosa fragments. The specimen is submitted in C1. [place] [place]06[place] [facility] 08/06/2019 1120 Local . 02 Pathologist provided ICD-10: K29.80, D13.2, K31.9 . 02 CPT . 964292, 657241, [id number], [id number] Specimen Comment: A courtesy copy of this report has been sent to [phone], [phone] Specimen Comment: [phone], Specimen Comment: Report sent to , and Performed at: [address], [place] [id number] MD German Suero MD Phone: [phone] Performed at: [address] [id number] MD Liza Santamaria MD Phone: [phone]
== END 2019-08-07 17:00 | DRG 177 ==
LOC: ER 14:52 → 4W 16:56 → 3W 16:56 → EROBS 16:56 → 3W 18:42 → 4W 08-04 20:49
PROVIDERS: Emergency Medicine; Hospitalist; Internal Medicine Nephrology; ADMIT Hospitalist
PROC: 0DB98ZX Excision of Duodenum, Via Natural or Artificial Opening Endoscopic, Diagnostic (ICD-10-PCS; principal; 2019-08-04)
DX: J69.0 Pneumonitis due to inhalation of food and vomit (principal); E43 Unspecified severe protein-calorie malnutrition; K29.71 Gastritis, unspecified, with bleeding; I21.A1 Myocardial infarction type 2; J96.90 Respiratory failure, unspecified, unspecified whether with hypoxia or hypercapnia; D62 Acute posthemorrhagic anemia; N17.9 Acute kidney failure, unspecified; N39.0 Urinary tract infection, site not specified; E87.0 Hyperosmolality and hypernatremia; I50.32 Chronic diastolic (congestive) heart failure; I13.0 Hypertensive heart and chronic kidney disease with heart failure and stage 1 through stage 4 chronic kidney disease, or unspecified chronic kidney disease; E87.1 Hypo-osmolality and hyponatremia; I69.354 Hemiplegia and hemiparesis following cerebral infarction affecting left non-dominant side; I69.351 Hemiplegia and hemiparesis following cerebral infarction affecting right dominant side; F01.50 Vascular dementia, unspecified severity, without behavioral disturbance, psychotic disturbance, mood disturbance, and anxiety; E11.22 Type 2 diabetes mellitus with diabetic chronic kidney disease; F32.9 Major depressive disorder, single episode, unspecified; D72.829 Elevated white blood cell count, unspecified; R13.12 Dysphagia, oropharyngeal phase; K31.7 Polyp of stomach and duodenum; K31.89 Other diseases of stomach and duodenum; N18.3 Chronic kidney disease, stage 3 (moderate); E87.8 Other disorders of electrolyte and fluid balance, not elsewhere classified; E86.0 Dehydration; E78.5 Hyperlipidemia, unspecified; R13.10 Dysphagia, unspecified; E87.6 Hypokalemia; I69.320 Aphasia following cerebral infarction; Z95.5 Presence of coronary angioplasty implant and graft; Z90.89 Acquired absence of other organs; I25.2 Old myocardial infarction; Z79.82 Long term (current) use of aspirin; Z88.5 Allergy status to narcotic agent; Z79.899 Other long term (current) drug therapy; Z88.8 Allergy status to other drugs, medicaments and biological substances; Z68.25 Body mass index [BMI] 25.0-25.9, adult
CPT/HCPCS: 10047; 10879; 50010; 62110; 62900